=== PATIENT | male | born 1985 | race Caucasian/White ===

== ENCOUNTER 2019-05-30 07:38 | Emergency (ER) | payer SELFPAY ==
[~2019-05-30] VITALS: Ht 182.9 cm; Wt 88.1 kg
[2019-05-30] MEDS ORDERED: SERTRALINE HCL100 MG PO (08:03)
[2019-05-30] MEDS ORDERED: ACETAMINOPHEN 325 MG TAB PO STA (08:06)
[2019-05-30 08:40] VITALS: BP 140/76
== END 2019-05-30 08:50 | disposition home or self-care (01) ==
LOC: FSED 07:38
DX: R50.9 Fever, unspecified (principal); R05 Cough; J11.1 Influenza due to unidentified influenza virus with other respiratory manifestations
CPT/HCPCS: 87400; 99283

== ENCOUNTER 2020-06-10 16:21 | Emergency (ER) | payer SELFPAY ==
[~2020-06-10] VITALS: Ht 180.3 cm; Wt 93.6 kg
[~2020-06-10 16:21] MED LIST: SERTRALINE HCL100 MG PO
[2020-06-10] MEDS ORDERED: PREDNISONE20 MG PO (20:50)
[2020-06-10] MEDS ORDERED: AZITHROMYCIN500 MG PO (20:50)
== END 2020-06-10 21:15 | disposition home or self-care (01) ==
LOC: FSED 16:35
DX: R07.89 Other chest pain (principal); J02.9 Acute pharyngitis, unspecified; R59.1 Generalized enlarged lymph nodes; R53.83 Other fatigue; F17.210 Nicotine dependence, cigarettes, uncomplicated
CPT/HCPCS: 71046; 99283